=== PATIENT | male | born 1985 | race Caucasian/White ===

== ENCOUNTER 2018-07-19 15:52 | Emergency (ER) | payer MEDICAID ==
--- NOTE | 2018-07-19 16:54 | EDPHY ---
H & P Stated Complaint: left shoulder injury 3 days ago, vomiting Time Seen by Provider: 07/19/18 16:42 - Personal History Current Tetanus Diphtheria and Acellular Pertussis (TDAP): No - Medical/Surgical History Hx Asthma: No Hx Chronic Respiratory Disease: No Hx Diabetes: No Hx Cardiac Disease: No Hx Renal Disease: No Hx Cirrhosis: No Hx Alcoholism: No Hx HIV/AIDS: No Hx Splenectomy or Spleen Trauma: No Other PMH: seizure disorder - Social History Smoking Status: Current every day smoker Constitutional: Initial Vital Signs Temperature (C) 37.1 C 07/19/18 16:14 Heart Rate 85 07/19/18 16:14 Respiratory Rate 16 07/19/18 16:14 Blood Pressure 104/84 H 07/19/18 16:14 O2 Sat (%) 98 07/19/18 16:14 O2 Delivery Mode Room Air Allergies/Adverse Reactions: No Known Allergies Allergy (Unverified 07/19/18 16:58) Home Medications: Medication Instructions Recorded Hydrocodone/APAP 5/325 [Stoddard 1 - 2 each PO Q4-6PRN PRN #20 tab 07/19/18 5/325] Ibuprofen [Motrin] 800 mg PO Q8 #20 tab 07/19/18 Medical Decision Making - Diagnostics Imaging: I viewed and interpreted images myself ED Course/Re-evaluation: CHIEF COMPLAINT: Left shoulder injury HISTORY OF PRESENT ILLNESS: The patient is a 32 y/o male complaining of left shoulder pain after falling 3 days ago. He states he was trying to brace himself from the fall and then subsequently injured his left shoulder. This pain is similar to prior shoulder dislocations and he is having pain while moving his arm. No chest pain, shortness of breath, abdominal pain, urinary or bowel complaints, numbness, fevers. REVIEW OF SYSTEMS: A 10 point review of systems was performed and is negative with the exception of the elements mentioned in the history of present illness. PHYSICAL EXAM: HR, BP, O2 Sat, RR. Temp noted General Appearance: Alert, well hydrated, appropriate, and non-toxic appearing. Head: Atraumatic without scalp tenderness or obvious injury Eyes: Pupils equal, round, reactive to light and accommodation, EOMI, no trauma , no injection. Ears: Clear bilaterally, no perforation, normal landmarks Nose: Atraumatic, no rhinorrhea, clear. Throat: There is no erythema or exudates, no lesions, normal tonsils, mucus membranes moist. Neck: Supple, 2+ carotid upstroke, nontender, no lymphadenopathy. Respiratory: No retractions, no distress, no wheezes, and no accessory muscle use. Lungs are clear to auscultation bilaterally. Cardiovascular: Regular rate and rhythm, no murmurs, rubs, or gallops. Bilateral carotid, radial, dorsalis pedis, and posterior tibial pulses intact. Good capillary refill all extremities. Gastrointestinal: Abdomen is soft, nontender, non-distended, no masses, no rebound, no guarding, no peritoneal signs. Musculoskeletal: Normal active ROM of all extremities, atraumatic. Neurological: Alert, appropriate, and interactive. The patient has normal DTRs and non-focal cranial nerves, motor, sensory, and cerebellar exam. Skin: No rashes, good turgor, no nodules on palpation. Past medical history: Seizures, shoulder dislocations Past surgical history: Denies Family history: Denies Social history: Lives in [place], single, not employed DIAGNOSTICS/PROCEDURES/CRITICAL CARE TIME: Left shoulder x-ray: No osseous injury or dislocation. DIFFERENTIAL DIAGNOSIS: The differential diagnosis for the patient's shoulder injury included but was not limited to fracture, ligamentous injury, contusion, muscular strain. MEDICAL DECISION MAKING: The patient is a 32 y/o male complaining of left shoulder pain after falling 3 days ago. He is also complaining of nausea. The patient has no significant exam findings. Left shoulder x-ray ordered. 1700: Reassessed patient and discussed normal x-ray findings. I have advised him to follow up with an orthopedic surgeon. I have placed him in a sling for comfort and prescribed him Stoddard, Zofran, and Motrin. Return precautions provided; patient is comfortable with this plan. Departure - Departure Disposition: Home, Routine, Self-Care Clinical Impression: Left shoulder strain Qualifiers: Encounter type: initial encounter Qualified Code(s): S46.912A - Strain of unspecified muscle, fascia and tendon at shoulder and upper arm level, left arm , initial encounter Condition: Good Instructions: Shoulder Sprain (ED), Shoulder Pain (ED) Additional Instructions: 1. Rest, ice, elevation. 2. Follow up with an orthopedic surgeon within one week. 3. Return to the emergency department for worsening pain, swelling, numbness, weakness or other concerns. 4. Wear sling at all times until reevaluation, but okay to shower and sleep without sling. 5. You will likely need an MRI to further evaluate your injury. 6. Use ibuprofen and Zofran in addition to prescribed pain medication as directed for pain. Referrals: Luis Saucedo MD [Medical Doctor] - As per Instructions Prescriptions: Hydrocodone/APAP 5/325 [Stoddard 5/325] 1 - 2 each PO Q4-6PRN PRN #20 tab PRN Reason: Pain, Moderate Ibuprofen [Motrin] 800 mg PO Q8 #20 tab Report Scribed for: Rahat Strickland Report Scribed by: Abida Dial Date of Report: 07/19/18 Time of Report: 16:54
[2018-07-19 17:22] VITALS: BP 129/78
== END 2018-07-19 17:22 | disposition home or self-care (01) ==
DX: S46.912A Strain of unspecified muscle, fascia and tendon at shoulder and upper arm level, left arm, initial encounter (principal); F17.200 Nicotine dependence, unspecified, uncomplicated; W19.XXXA Unspecified fall, initial encounter; Y92.9 Unspecified place or not applicable; Y93.9 Activity, unspecified; Y99.9 Unspecified external cause status